=== PATIENT | male | born 1990 | race Two or more races ===

== ENCOUNTER 2019-02-15 20:41 | Inpatient (IN) | payer OTHER ==
[~2019-02-15] VITALS: Ht 170.2 cm; Wt 68.9 kg
--- NOTE | 2019-02-15 20:51 | NUR ---
[facility] AND [employer] FROM [facility] FOR INSERTING METH IN THE RECTUM AND SWALLOWING METH X1 HOUR AGO. POSSIBLE OD. IN CUSTODY. C/O CHEST PAIN, +SOB. PT VERY ANXIOUS, AAOX3. PLACED ON [employer] BUS TECHNICIAN, ST. AWAITING EVAL BY HAILEE/PA. WILL CONT TO MONITOR.
[2019-02-15 21:22] LABS: BASOPHILS # (AUTO) 0.1 /CMM (0.0-0.2); BASOPHILS % (AUTO) 0.8 % (0.0-2.0); EOSINOPHILS % (AUTO) 1.4 % (0.0-6.0); HEMATOCRIT 46 % (39-51); HEMOGLOBIN 15.6 g/dL (13.5-17.5); LYMPHOCYTES # (AUTO) 1.5 /CMM (0.8-4.8); LYMPHOCYTES % (AUTO) 13.8 % (20.0-44.0); MEAN CORPUSCULAR HGB CONC 34 g/dl (31.0-36.0); MEAN CORPUSCULAR VOLUME 89 fL (80-96); MONOCYTES # (AUTO) 0.8 /CMM (0.1-1.30); MONOCYTES % (AUTO) 6.8 % (2.0-12.0); NEUTROPHILS # (AUTO) 8.5 /CMM (1.8-8.9); NEUTROPHILS % (AUTO) 77.2 % (43.0-81.0); PLATELET COUNT (AUTO) 336 /CMM (150-450); RED BLOOD CELL COUNT(AUTO) 5.11 MIL/uL (4.5-6.0)
[2019-02-15] MEDS ORDERED: LORAZEPAM 1 MG TABLET ONE (21:22)
--- NOTE | 2019-02-15 21:27 | NUR ---
MEDICATED PER PA'S ORDER, PT CARMEL WELL.
[2019-02-15 21:30] LABS: CALCIUM, SERUM 9.3 mg/dL (8.5-10.1); CARBON DIOXIDE 24 mmol/L (21-32); CHLORIDE 102 mmol/L (98-107); GLUCOSE 113 mg/dL (74-106); POTASSIUM 3.6 mmol/L (3.5-5.1); SODIUM SERUM 138 mmol/L (136-145); UREA NITROGEN, BLOOD 15 mg/dL (7-18)
[2019-02-15] MEDS ORDERED: LORAZEPAM 1 MG TABLET PO ONE (21:30)
[2019-02-15 21:36] LABS: ALANINE AMINOTRANSFERASE 19 U/L (12-78); ALCOHOL, BLOOD < 3 mg/dL (0-0); ALKALINE PHOSPHATASE 86 U/L (46-116); ASPARTATE AMINOTRANSFERASE 16 U/L (15-37); BILIRUBIN,DIRECT 0.1 mg/dL (0.0-0.2); BILIRUBIN,TOTAL 0.4 mg/dL (0.2-1.0); TOTAL PROTEIN, SERUM 7.6 g/dL (6.4-8.2)
[2019-02-15 21:40] LABS: ACETAMINOPHEN < 5 ug/ml (10-30); SALICYLATE 1.6 mg/dL (2.8-20.0)
--- NOTE | 2019-02-16 01:30 | NUR ---
URINE COLLECTED AND SENT TO LAB
[2019-02-16 01:55] LABS: APPEARANCE,URINE Slightly Cloudy (CLEAR); BILIRUBIN,URINE Negative (NEGATIVE); BLOOD, URINE Negative Ery/uL (NEGATIVE); COLOR,URINE Yellow (YELLOW); KETONES,URINE Negative (NEGATIVE); LEUKOCYTE ESTERASE ,URINE Negative (NEGATIVE); NITRITE, URINE Negative (NEGATIVE); PH,URINE 7.5 (5.0-8.0); PROTEIN,URINE Negative (NEGATIVE); UGLUCOSE Negative (NEGATIVE); UROBILINOGEN,URINE 0.2 EU/dL (0.2)
--- NOTE | 2019-02-16 02:09 | NUR ---
PT ASSIGNED TO 314-2
[2019-02-16] MEDS ORDERED: Z GUARD REMEDY 2 OZ OINT TP PRN (04:30)
[2019-02-16] MEDS ORDERED: ACETAMINOPHEN 325 MG TABLET PO PRN (04:30)
[2019-02-16] MEDS ORDERED: ONDANSETRON HCL/PF 4 MG/2 ML VIAL IVP PRN (04:30)
[2019-02-16 04:50] VITALS: BP 116/74
--- NOTE | 2019-02-16 05:00 | NUR ---
TELE SHOW GIRL INITIAL NOTES ADMIT PT FROM ER VIA MELONY DEVRIES OF ER NURSE AND WITH CUSTODY. PT FROM [facility] DX OF METHAMPETAMINE INGESTION. HE SWALLOWED A BAG OF METH AND SHOVED A BAG OF METH INTO HIS RECTUM PER ER THEN PT DENIES IT. HE'S RESTING BUT AROUSE TO TOUCH AND TO HIS NAME . AWARE WHERE HE AT, ABLE TO GIVE SOME INFORMATION ABOUT HIMSELF .BREATHING EVEN AND NON-LABORED , NOT IN ANY ACUTE DISTRESS. SKIN WARM AND DRY TO TOUCH NOTICED MULTIPLE TATTOO ON HIS UPPER PART OF HIS BODY. DENIES ANY HALLUCINATIONS AND SUICIDAL IDEATION. HE'S WITH CUSTODY AND LEFT ARM HANDCUFF ON THE SIDE RAILS AT THIS TIME. SINUS RHYTHM ON TELE MONITOR. NO N.V , NO ABDOMINAL PAIN NOTED AT THIS TIME. KEPT HIM WARM AND COMFORTABLE AT ALL TIMES. WILL CONTINUE MONITORING.PLACE CALL LIGHT AT REACH.
[2019-02-16 05:22] VITALS: BP 116/74
--- NOTE | 2019-02-16 07:32 | NUR ---
TELE GAME PROGRAMER CLOSING NOTES PT RESTING COMFORTABLY IN BED WITHOUT ANY ACUTE DISTRESS NOTED. STABLE AND SLEPT WELL PAPITO THE NIGHT. IVF NS STILL INFUSING . KEPT HIM WARM AND COMFORTABLE AT ALL TIMES. PLACE CALL LIGHT AT REACH. TELE SINUS RHYTHM PER MONITOR. VITAL SIGNS STABLE . CUSTODY REMAIN AT THE BEDSIDE. ENDORSE TO AM NURSE MAX FOR CONTINUITY OF CARE. PLACE CALL LIGHT AT REACH.
--- NOTE | 2019-02-16 07:45 | NUR ---
Tele/RN - Assessment Patient awake, A/O x 4, here for meth ingestion possible overdose, under police custody, no complaints overnight, tele shows SR, denies chest pain at this time, no apparent distress, afebrile, stable on room air, no seizure activity noted. Saline lock on the RAC with no signs of infiltration. Morning labs with pending result. Skin is intact, independent with bed mobility, ambulatory with steady gait. Patient educated on plan of care. Will continue with current medical management.
[2019-02-16 08:00] VITALS: BP 115/73
--- NOTE | 2019-02-16 10:30 | NUR ---
MS/RN - s/b hospitalist Seen and examined by Dr. Garza with orders.
--- NOTE | 2019-02-16 11:30 | NUR ---
MS/RN - Surgical consult Seen and examined by PRABHAKAR Mccabe with orders.
--- NOTE | 2019-02-16 11:45 | NUR ---
MS/RN - Notes Patient defecated multiple fragments of blue plastic, sent to pathology.
--- NOTE | 2019-02-16 13:50 | NUR ---
MS/RN - GI Consult Seen and examined by amina Wetzel to be discharged from his standpoint.
[2019-02-16 16:00] VITALS: BP 122/74
--- NOTE | 2019-02-16 17:45 | NUR ---
MS/RN - End of shift summary Patient under police custody, A/O x 4, with no further episodes of defecating foreign object, remain afebrile, denies pain, no seizure activity, no n/v, currently NPO. All needs attended. Will continue with current medical management and will endorse to night nurse accordingly.
--- NOTE | 2019-02-16 18:32 | NUR ---
Patient was admitted under police custody. Prior to admission, he was ambulatory and independent with adl's. Current dc plan is to dc with deputies custody via squad car. [employer]: Karoline [phone]. [employer] ctr : [phone] Addendum: 02/16/19 at 1833 by PATRICIA SWARTZ RN Amended: Links added.
--- NOTE | 2019-02-16 19:25 | NUR ---
MS/RN PER GIOVANI MAX OF THE DAY SHIFT, PATIENT JUST HAD A BM PER SENIOR ARCHITECT/DESIGN MANAGER, WE NOTED 3 BLUE COLORED MATERIALS IN THE TOILET HAT. WILL CONTINUE INSPECT STOOL ORDERED.
--- NOTE | 2019-02-16 19:30 | NUR ---
MS/RN INITIAL SHIFT ROUND, FOUND PATIENT ON BED AWAKE, ALERT ORIENTED, COMFORTABLE, NO C/O PAIN, NO DISTRESS NOTED, PATIENT IS ON POLICE CUSTODY WITH TWO POLICE OFFICERS IN THE ROOM, PATIENT LEFT WRIST IS HAND CUFFED TO THE SIDE RAIL OF THE BED. WILL MONITOR.
[2019-02-16 20:00] VITALS: BP 124/80
--- NOTE | 2019-02-16 20:54 | NUR ---
MS/RN RECEIVED A CALL EARLIER FROM PATIENT'S MOTHER, THE DEVELOPMENTAL MATHEMATICS INSTRUCTOR SPOKE TO THE MOTHER.
--- NOTE | 2019-02-16 23:56 | NUR ---
MS/RN PATIENT IS SLEEPING AT THIS TIME, EASILY AROUSABLE, APPEAR COMFORTABLE, SIGNS OF DISTRESS NOTED, CALL LIGHT IN REACH. WILL CONTINUE TO MONITOR.
--- NOTE | 2019-02-17 06:30 | NUR ---
MS/RN PATIENT IS STILL SLEEPING, AROUSABLE, APPEAR COMFORTABLE, NO DISTRESS NOTED, ALL NEEDS ATTENDED AT THIS TIME. WILL CONTINUE TO MONITOR.
[2019-02-17 07:32] LABS: BASOPHILS % (AUTO) 0.7 % (0.0-2.0); EOSINOPHILS % (AUTO) 4.2 % (0.0-6.0); HEMATOCRIT 45 % (39-51); HEMOGLOBIN 15.5 g/dL (13.5-17.5); LYMPHOCYTES # (AUTO) 1.6 /CMM (0.8-4.8); MEAN CORPUSCULAR HGB CONC 35 g/dl (31.0-36.0); MEAN CORPUSCULAR VOLUME 90 fL (80-96); MONOCYTES # (AUTO) 0.5 /CMM (0.1-1.30); MONOCYTES % (AUTO) 7.5 % (2.0-12.0); NEUTROPHILS # (AUTO) 4.6 /CMM (1.8-8.9); NEUTROPHILS % (AUTO) 64.6 % (43.0-81.0); PLATELET COUNT (AUTO) 284 /CMM (150-450); WHITE BLOOD COUNT (AUTO) 7.1 K/uL (4.3-11.0)
--- NOTE | 2019-02-17 07:39 | NUR ---
RN OPENING NOTE PT IN BED RESTING, CURRENTLY RESTRAINED VIA PD HANDCUFF TO BED. POLICE CUSTODY X 2 BEDSIDE. A/OX4 NO S/S FO RESP DISTRESS/SOB, NO C/O PAIN. PER MD, STOOL TO BE INSPECTED. X2 BLUE FOREIGN BODIES SENT TO LAB ON 02/16, RESULTS IN EMR. PLAN FOR FUTURE ENDOSCOPY SX. SAFETY MEASURES IN PLACE, CALL LIGHT WITHIN REACH. WILL CONT TO MONITOR.
[2019-02-17 08:00] VITALS: BP 114/89
[2019-02-17 08:01] LABS: CALCIUM, SERUM 9.2 mg/dL (8.5-10.1); CREATININE 0.7 mg/dL (0.6-1.3); MAGNESIUM 1.8 mg/dL (1.8-2.4); PHOSPHORUS 3.6 mg/dL (2.5-4.9)
[2019-02-17 10:41] LABS: CHOLESTEROL 201 mg/dL (<200); HDL CHOLESTEROL 49 mg/dL (40-60); LDL 129 mg/dL (0-99); TRIGLYCERIDES 501 mg/dL (30-150)
--- NOTE | 2019-02-17 12:30 | NUR ---
DISCHARGE NOTE PT DISCHARGED TO POLICE CUSTODY FOR INTERMEDIATE BOOKING. VSS, NO S/S OF RESP DISTRESS/SOB. NO C/O PAIN. DISCHARGE TEACHING PERFORMED USING EXIT CARE. ALL CONSULTS/IMAGING/LABS/MEDICATION LISTS PROVIDED. DISCHARGE INSTRUCTIONS/BELONGINGS LIST SIGNED BY POLICE ESCORT, COPIED AND PLACED IN CHART. IV ACCESS AND ID BAND REMOVED. PT LEFT HOSPITAL IN PRIVATE VEHICLE WITH POLICE ESCORT..
== END 2019-02-17 12:35 | DRG 395 ==
LOC: ER 20:41 → TELE 02-16 02:38 → MED 02-16 08:51
PROVIDERS: ADMIT Student in an Organized Health Care Education/Training Program; ATTEND Student in an Organized Health Care Education/Training Program
DX: T18.5XXA Foreign body in anus and rectum, initial encounter (principal); F15.90 Other stimulant use, unspecified, uncomplicated; J45.909 Unspecified asthma, uncomplicated; X58.XXXA Exposure to other specified factors, initial encounter; F12.90 Cannabis use, unspecified, uncomplicated; Y92.89 Other specified places as the place of occurrence of the external cause; K40.90 Unilateral inguinal hernia, without obstruction or gangrene, not specified as recurrent
CPT/HCPCS: 36415; 71045-TC; 74018; 80048-TC; 80061-TC; 80076-TC; 80305; 81000-TC; 83735-TC; 84100-TC; 85025-TC; 87081-TC; 88300-TC; G0378; G0480